=== PATIENT | male | born 1965 | race African-American/Black ===

== ENCOUNTER 2016-11-11 20:31 | Inpatient (IN) | payer OTHER ==
[2016-11-11 22:27] LABS: BASOPHIL 0.2 % (0-2); EOSINOPHIL 0.3 % (0-5); HCT 43.4 % (42.0-52.0); HGB 14.7 g/dl (13.2-18.0); MCH 33.1 pg (25.0-31.0); MCHC 33.9 g/dL (32.0-36.0); MCV 97.7 fL (78.0-100.0); MONOCYTE 2.6 % (0-12); MPV 9.2 fL (6.0-9.5); NEUTROPHIL 89.9 % (41-80); PLT 323 K/uL (150-400); RBC 4.44 M/uL (4.70-6.00); RDW 14.1 % (11.5-14.0)
[2016-11-11 22:28] LABS: WBC 13.7 K/uL (4.0-10.5)
[2016-11-11 22:47] LABS: CREATININE 0.6 mg/dL (0.7-1.2); POTASSIUM 4.5 mmol/L (3.5-5.1)
[2016-11-12 01:56] LABS: BILIRUBIN - DIRECT 0.2 mg/dL (0.0-0.2); MAGNESIUM 2.2 mg/dL (1.40-2.10); PHOSPHORUS 4.1 mg/dL (2.7-4.5)
[2016-11-12 01:57] LABS: CKMB 1.11 ng/mL (0.97-4.94); TROPONIN T < 0.010 ng/mL
[2016-11-12 02:04] LABS: INR 1.01 (0.9-1.2); PROTHROMBIN TIME 12.9 SECONDS (11.7-14.0); PTT 24.4 SECONDS (23.2-31.4)
[2016-11-12 05:21] LABS: BASOPHIL 0.1 % (0-2); EOSINOPHIL 0.1 % (0-5); HGB 12.7 g/dl (13.2-18.0); LYMPHOCYTE 8.7 % (15-48); MCH 32.7 pg (25.0-31.0); MCHC 33.4 g/dL (32.0-36.0); MCV 97.9 fL (78.0-100.0); MONOCYTE 8.3 % (0-12); MPV 9.7 fL (6.0-9.5); NEUTROPHIL 82.8 % (41-80); PLT 335 K/uL (150-400); RBC 3.88 M/uL (4.70-6.00); RDW 13.7 % (11.5-14.0); WBC 10.4 K/uL (4.0-10.5)
[2016-11-12 05:30] LABS: INR 1.07 (0.9-1.2); PROTHROMBIN TIME 13.5 SECONDS (11.7-14.0); PTT 26.9 SECONDS (23.2-31.4)
[2016-11-12 05:40] LABS: ALBUMIN 4.2 g/dL (3.5-5.0); BILIRUBIN - TOTAL 0.6 mg/dL (0.1-1.0); CREATININE 0.6 mg/dL (0.7-1.2); GLOBULIN (CALCULATION) 2.7 g/dL (2.2-4.2); MAGNESIUM 1.68 mg/dL (1.40-2.10); PHOSPHORUS 4.1 mg/dL (2.7-4.5); POTASSIUM 3.9 mmol/L (3.5-5.1); TOTAL PROTEIN 6.9 g/dL (6.4-8.3)
[2016-11-13 05:26] LABS: HCT 37.4 % (42.0-52.0); HGB 12.5 g/dl (13.2-18.0); MCH 32.5 pg (25.0-31.0); MCHC 33.4 g/dL (32.0-36.0); MCV 97.1 fL (78.0-100.0); MPV 10.1 fL (6.0-9.5); RBC 3.85 M/uL (4.70-6.00); RDW 13.4 % (11.5-14.0); WBC 11.2 K/uL (4.0-10.5)
[2016-11-13 05:48] LABS: CREATININE 0.6 mg/dL (0.7-1.2)
[2016-11-14 05:42] LABS: HCT 34.5 % (42.0-52.0); HGB 11.7 g/dl (13.2-18.0); MCH 33.1 pg (25.0-31.0); MCHC 33.9 g/dL (32.0-36.0); MCV 97.7 fL (78.0-100.0); MPV 9.5 fL (6.0-9.5); RBC 3.53 M/uL (4.70-6.00); RDW 13.1 % (11.5-14.0); WBC 9.4 K/uL (4.0-10.5)
[2016-11-14 06:00] LABS: CREATININE 0.6 mg/dL (0.7-1.2); MAGNESIUM 1.93 mg/dL (1.40-2.10); POTASSIUM 4.1 mmol/L (3.5-5.1)
[2016-11-14 14:26] LABS: CREATININE 0.8 mg/dL (0.7-1.2); POTASSIUM 4.5 mmol/L (3.5-5.1)
[2016-11-15 05:41] LABS: HCT 25.7 % (42.0-52.0); HGB 8.6 g/dl (13.2-18.0); MCHC 33.5 g/dL (32.0-36.0); MCV 98.5 fL (78.0-100.0); MPV 9.7 fL (6.0-9.5); RBC 2.61 M/uL (4.70-6.00); RDW 12.4 % (11.5-14.0); WBC 9.5 K/uL (4.0-10.5)
[2016-11-15 06:02] LABS: CREATININE 0.6 mg/dL (0.7-1.2); POTASSIUM 4.3 mmol/L (3.5-5.1)
[2016-11-16 05:12] LABS: HCT 24.7 % (42.0-52.0); HGB 8.2 g/dl (13.2-18.0); MCH 32.4 pg (25.0-31.0); MCHC 33.2 g/dL (32.0-36.0); MCV 97.6 fL (78.0-100.0); MPV 9.4 fL (6.0-9.5); RBC 2.53 M/uL (4.70-6.00); RDW 12.1 % (11.5-14.0); WBC 10.4 K/uL (4.0-10.5)
[2016-11-16 05:30] LABS: CREATININE 0.6 mg/dL (0.7-1.2); POTASSIUM 3.8 mmol/L (3.5-5.1)
[2016-11-16] MEDS ORDERED: XARELTO10 MG PO (14:23)
== END 2016-11-16 13:35 | disposition home health service (06) | DRG 481 ==
LOC: FER 20:31 → FMS 20:32 → FER 23:58 → FMS 11-12 08:30 → FER 11-12 08:30 → FMS 11-12 08:30
PROVIDERS: Internal Medicine; Internal Medicine Cardiovascular Disease; Legal Medicine; Nurse Practitioner Family; ADMIT Internal Medicine
PROC: 0QS706Z Reposition Left Upper Femur with Intramedullary Internal Fixation Device, Open Approach (ICD-10-PCS; principal; 2016-11-14 15:30)
DX: S72.142A Displaced intertrochanteric fracture of left femur, initial encounter for closed fracture (principal); D62 Acute posthemorrhagic anemia; I10 Essential (primary) hypertension; F10.239 Alcohol dependence with withdrawal, unspecified; N39.0 Urinary tract infection, site not specified; W18.30XA Fall on same level, unspecified, initial encounter; Y93.89 Activity, other specified; Y92.009 Unspecified place in unspecified non-institutional (private) residence as the place of occurrence of the external cause; F17.210 Nicotine dependence, cigarettes, uncomplicated; Y90.4 Blood alcohol level of 80-99 mg/100 ml; R00.0 Tachycardia, unspecified; B96.20 Unspecified Escherichia coli [E. coli] as the cause of diseases classified elsewhere
CPT/HCPCS: 36415; 71010; 72170; 73501; 73502; 76000; 80048; 80053; 80074; 82248; 82550; 82553; 83605; 83735; 84100; 84484; 85025; 85610; 85730; 87076; 87088; 87186; 93005; 94010; 94760; 94762; 97110; 97116; 97162; 97166; 97530; 97530-GP; 97535; C1713; G0480; J0131; J0697; J1100; J1170; J2060; J2270; J2405; J2704; J2795; J3010; J3411; J3475

== ENCOUNTER 2021-09-11 22:24 | Inpatient (IN) | payer OTHER ==
[~2021-09-11] VITALS: Ht 180.3 cm; Wt 69.4 kg
[~2021-09-11 22:24] MED LIST: XARELTO10 MG PO
[2021-09-12 00:25] LABS: BASOPHIL 0.4 % (0-2); EOSINOPHIL 0.5 % (0-5); HCT 38.8 % (42.0-52.0); HGB 13.1 g/dl (13.2-18.0); LYMPHOCYTE 8.7 % (15-48); MCH 35.3 pg (25.0-31.0); MCHC 33.8 g/dL (32.0-36.0); MCV 104.6 fL (78.0-100.0); MONOCYTE 1.9 % (0-12); MPV 8.8 fL (6.0-9.5); NEUTROPHIL 88.2 % (41-80); NRBC 0; PLT 251 K/uL (150-400); RBC 3.71 M/uL (4.70-6.00); RDW 13.1 % (11.5-14.0); WBC 7.4 K/uL (4.0-10.5)
[2021-09-12 00:34] LABS: INR 1.03 (0.9-1.2); PROTHROMBIN TIME 12.9 SECONDS (11.8-13.4); PTT 27.8 SECONDS (24.4-34.7)
[2021-09-12 00:41] LABS: ALBUMIN 3.7 g/dL (3.4-5.0); BILIRUBIN - TOTAL 0.4 mg/dL (0.2-1.0); BUN/CREAT RATIO (CALC) 11.5 RATIO; CREATININE 0.61 mg/dL (0.67-1.17); GLOBULIN (CALCULATION) 3.7 g/dL; POTASSIUM 2.8 mmol/L (3.5-5.1); TOTAL PROTEIN 7.4 g/dL (6.4-8.2)
[2021-09-12 03:26] LABS: MAGNESIUM 1.7 mg/dL (1.8-2.4); PHOSPHORUS 2.7 mg/dL (2.6-4.7)
[2021-09-13 13:56] LABS: BUN/CREAT RATIO (CALC) 11.5 RATIO; CREATININE 0.61 mg/dL (0.67-1.17); POTASSIUM 3.3 mmol/L (3.5-5.1)
[2021-09-14 07:00] LABS: BASOPHIL 0.5 % (0-2); EOSINOPHIL 1.2 % (0-5); HCT 40.6 % (42.0-52.0); HGB 13.9 g/dl (13.2-18.0); LYMPHOCYTE 19.4 % (15-48); MCH 35.3 pg (25.0-31.0); MCHC 34.2 g/dL (32.0-36.0); MONOCYTE 11.1 % (0-12); MPV 9.5 fL (6.0-9.5); NEUTROPHIL 67.3 % (41-80); NRBC 0; PLT 267 K/uL (150-400); RBC 3.94 M/uL (4.70-6.00); RDW 12.7 % (11.5-14.0); WBC 8.2 K/uL (4.0-10.5)
[2021-09-14 07:15] LABS: BUN/CREAT RATIO (CALC) 10.3 RATIO; CREATININE 0.68 mg/dL (0.67-1.17); POTASSIUM 3.7 mmol/L (3.5-5.1)
[2021-09-15 06:19] LABS: BASOPHIL 0.2 % (0-2); EOSINOPHIL 0.2 % (0-5); HCT 37.4 % (42.0-52.0); HGB 12.8 g/dl (13.2-18.0); LYMPHOCYTE 10.2 % (15-48); MCHC 34.2 g/dL (32.0-36.0); MCV 102.2 fL (78.0-100.0); MONOCYTE 14.1 % (0-12); MPV 9.5 fL (6.0-9.5); NEUTROPHIL 74.7 % (41-80); NRBC 0; PLT 291 K/uL (150-400); RBC 3.66 M/uL (4.70-6.00); RDW 12.4 % (11.5-14.0); WBC 10.7 K/uL (4.0-10.5)
[2021-09-15 07:04] LABS: CREATININE 0.6 mg/dL (0.67-1.17); POTASSIUM 3.5 mmol/L (3.5-5.1)
[2021-09-15] MEDS ORDERED: FOLIC ACID1 MG PO (08:56)
[2021-09-15] MEDS ORDERED: SENNOSIDES-DOC1 EACH PO (08:56)
[2021-09-15] MEDS ORDERED: FEOSOL325 MG PO (08:56)
[2021-09-15] MEDS ORDERED: VITAMIN B-1100 M1 PO (08:56)
[2021-09-15] MEDS ORDERED: ASPIRIN81 MG PO (08:56)
[2021-09-15] MEDS ORDERED: COZAAR50 MG PO (08:56)
[2021-09-15] MEDS ORDERED: LOPRESSOR50 MG PO (08:56)
[2021-09-15] MEDS ORDERED: NORVASC5 MG PO (08:56)
== END 2021-09-15 10:30 | disposition home or self-care (01) | DRG 522 ==
LOC: FER 22:24 → FMS 09-12 00:04
PROVIDERS: Allergy & Immunology Allergy; Internal Medicine; Nurse Practitioner; Orthopaedic Surgery; ADMIT Internal Medicine
PROC: HZ2ZZZZ Detoxification Services for Substance Abuse Treatment (ICD-10-PCS; 2021-09-12)
PROC: 0SR904A Replacement of Right Hip Joint with Ceramic on Polyethylene Synthetic Substitute, Uncemented, Open Approach (ICD-10-PCS; principal; 2021-09-14 10:30)
DX: S72.011A Unspecified intracapsular fracture of right femur, initial encounter for closed fracture (principal); F10.139 Alcohol abuse with withdrawal, unspecified; W01.0XXA Fall on same level from slipping, tripping and stumbling without subsequent striking against object, initial encounter; I10 Essential (primary) hypertension; Z20.822 Contact with and (suspected) exposure to COVID-19; R94.31 Abnormal electrocardiogram [ECG] [EKG]; D75.89 Other specified diseases of blood and blood-forming organs; F17.210 Nicotine dependence, cigarettes, uncomplicated; Z96.642 Presence of left artificial hip joint; Z88.8 Allergy status to other drugs, medicaments and biological substances; Z79.899 Other long term (current) drug therapy
CPT/HCPCS: 36415; 73501; 73502; 76000; 80048; 80053; 82607; 83735; 84100; 85025; 85610; 85730; 86850; 86900; 86901; 93005; 94010; 97162; 97165; 97530-GP; C1776; J0171; J0360; J0697; J1170; J1885; J2250; J2270; J2704; J2795; J3010; J3411; J3475; J7120; U0002